=== PATIENT | male | born 1935 | race African-American/Black ===

== ENCOUNTER 2017-10-16 16:41 | Observation (INO) ==
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
[2017-10-16 18:20] LABS: Hematocrit 29.1 % (42.0-52.0); Hemoglobin 9.2 gm/dL (13.5-18.0); Mean Cell Volume 81.3 fl (78-100); Mean Corpuscular Hemoglobin 25.7 pg (27-31); Mean Corpuscular Hgb Conc 31.6 g/dl (32-36); Mean Platelet Volume 9.1 fl (8-11.3); Neutrophil # 6.9 K/mm3 (1.3-6.0); Neutrophil % 71.3 % (42-75.0); Platelet Count 227 K/mm3 (150-450); Red Blood Count 3.58 M/mm3 (4.7-6.0); Red Cell Distribution Width 15.4 % (11.5-14.0); White Blood Count 9.7 K/mm3 (4.0-10.5)
[2017-10-16 18:33] LABS: Albumin * 2.6 gm/dl (3.4-5.0); Anion Gap 9.6 mmol/L (6.8-13.8); BUN/Creatinine Ratio 17.2 (9.0-21.6); Bilirubin, Total 0.6 mg/dL (0.0-1.1); Ca. Corrected For Albumin 9.5 mg/dL (8.4-10.2); Calcium * 8.7 mg/dL (7.9-10.9); Potassium 4.6 mmol/L (3.4-4.6); Total Protein 7.3 gm/dL (6.2-8.2)
[2017-10-16] MEDS ORDERED: guaiFENesin 100 MG/5 ML BTL PO PRN (22:50)
[2017-10-16] MEDS ORDERED: MAGNESIUM HYDROXIDE 30 ML UDC PO PRN (22:50)
[2017-10-16] MEDS ORDERED: ONDANSETRON HCL 4 MG/5 ML BTL PO PRN (22:50)
[2017-10-16] MEDS ORDERED: ACETAMINOPHEN 325 MG TABLET PO PRN (22:50)
[2017-10-16] MEDS ORDERED: BISACODYL 10 MG SUPP.RECT RC PRN (22:50)
[2017-10-16] MEDS: MORPHINE SULFATE 10 MG/0.5 ML SYRINGE PO PRN (23:26)
--- NOTE | 2017-10-17 08:37 | HP ---
Chief Complaint - Chief Complaint Date of Service: 10/17/17 Time of Service: 08:00 Chief Complaint: Weakness, unable to care at home, hospice History of Present Illness: David is an 82 yo male on hospice due to prostate cancer and CVA. He has home hospice through [facility]. He was going out to the garage to get something to swish when he fell backwards and couldn't get up. His helped him to bed but since then she has not been able to get out of bed on his own. He normally is able to get around with a walker. Since he is unable to get to the bathroom he has been incontinent in bed. He has not had a bowel movement in 4 days. His was finding it difficult to care for him at home and called the hospice nurse who recommended he go to the ER and we begin looking into halfway placement with hospice. Due to stroke he takes nutrition through tube feeds. He chronically has right hip pain and left breast pain. He currently reports these are controlled on his morphine. He denies any new symptoms other than the weakness. Medical History (Last Reviewed 10/17/17 @ 00:15 by Misty Rubin RN) CVA (cerebral vascular accident) Liver cancer Metastatic malignant neoplasm to prostate Prostate CA Surgical History: Surgical History (Last Updated 10/17/17 @ 08:32 by Emmanuel Rodriguez DO) No pertinent past surgical history Family History: Family History (Last Updated 10/17/17 @ 08:31 by Emmanuel Rodriguez DO) Other Not Contributory Social History: Patient Lives/Resources With Spouse Utilized Preferred Language Indonesian Do you have any restoration or No cultural preference? Smoking Status Former smoker Have you smoked in the past 12 No months Do you dip or chew tobacco No Abuse History No History of abuse Psych History No pertinent hx Alcohol Use none Drug Use none Review Of Systems (GEN) - Review of Systems Generalized/Overall Review: Present: Weakness. Absent: Chills, Fever EENTM: Present: Other - Chronic dry mouth Respiratory: Absent: Cough, Shortness of Breath Cardiac: Absent: Chest Pain, Edema Abdominal: Absent: Nausea, Vomiting Genitourinary: Present: Incontinent - from inability to get to the bathroom. Absent: Burning Musculoskeletal: Present: Joint Pain - Right Hip pain Neurological: Present: No Symptoms Reported Skin: Present: No Symptoms Reported Endocrine: Present: No Symptoms Reported Immunizations: IMMUNIZATION HX Immunizations Up to Date Yes History of Influenza Vaccine No Hx Pneumococcal Vaccination No Allergies/Adverse Reactions: Allergies Allergy/AdvReac Type Severity Reaction Status Date / Time No Known Allergies Allergy Verified 10/16/17 16:48 Home Medications: HOME MEDICATIONS Acetaminophen [Tylenol] 650 mg PO Q4H PRN 10/16/17 [Last Taken Unknown] Atorvastatin Calcium [Lipitor] 10 mg PEG DAILY 10/16/17 [Last Taken Unknown] Biotin [Cyto B7] 5 mg PO Q4H PRN 10/16/17 [Last Taken Unknown] Bisacodyl [Dulcolax Suppository] 10 mg RC DAILY PRN 10/16/17 [Last Taken Unknown ] Clopidogrel Bisulfate [Plavix] 75 mg PEG DAILY 10/16/17 [Last Taken Unknown] Docusate Sodium [Diocto] 100 mg PO BID 10/16/17 [Last Taken Unknown] Ergocalciferol (Vitamin D2) 6.5 ml PEG DAILY 10/16/17 [Last Taken Unknown] Escitalopram Oxalate 2.5 mg PEG DAILY 10/16/17 [Last Taken Unknown] Famotidine 2.5 ml PEG DAILY 10/16/17 [Last Taken Unknown] Magnesium Hydroxide [Milk Of Magnesia] 30 ml PO Q4H PRN 10/16/17 [Last Taken Unknown] Morphine Sulfate Conc. Oral Solution 0.25 ml PEG Q2H PRN 10/16/17 [Last Taken Unknown] Omeprazole Magnesium 20 ml PEG BID 10/16/17 [Last Taken Unknown] Ondansetron HCl 4 mg PO Q4H PRN 10/16/17 [Last Taken Unknown] Polyethylene Glycol 3350 [Miralax] 17 gm PEG DAILY 10/16/17 [Last Taken Unknown] Senna [place] Extract [Senna] 176 mg PO BID 10/16/17 [Last Taken Unknown] Tamsulosin HCl [Flomax] 0.4 mg PEG DAILY 10/16/17 [Last Taken Unknown] guaiFENesin [Guaifenesin] 200 mg PO Q4H PRN 10/16/17 [Last Taken Unknown] Exam - Exam Vital Signs: Vital Signs - Last Taken Temp 36.4 C 10/17/17 07:01 Pulse 91 10/17/17 07:01 Resp 16 10/17/17 07:01 BP 127/53 10/17/17 07:01 Pulse Ox 92 L 10/17/17 07:01 Constitutional: Present: Alert, Oriented x3, Cooperative ENT Exam: Present: hearing grossly normal Eye Exam: bilateral eye: normal inspection Respiratory: Present: lungs clear, normal breath sounds, no respiratory distress Cardiovascular/Chest: Present: regular rate, rhythm, no murmur Peripheral Pulses: radial (R): 2+, radial (L): 2+ Abdomen: Present: Normal bowel sounds, soft, nontender, no hepatospenomegaly, no masses Extremity: Present: no pedal edema Skin Exam: Present: normal color, warm/dry, no cyanosis Neurologic: Present: alert, normal mood/affect, oriented x 3 Appearance: Present: appropriate appearance, appropriate insight Diagnostic Studies: Abnormal Lab Results 10/16/17 10/16/17 Range/Units 18:15 18:15 RBC 3.58 L (4.7-6.0) M/mm3 Hgb 9.2 L (13.5-18.0) gm/dL Hct 29.1 L (42.0-52.0) % MCH 25.7 L (27-31) pg MCHC 31.6 L (32-36) g/dl RDW 15.4 H (11.5-14.0) % Immature Gran % (Auto) 1.10 H (0.001-0.429) % Immature Gran # (Auto) 0.11 H (0.000-0.0310) K/mm3 Lymphocytes % 17.8 L (20-51) % Monocytes % 9.7 H (0.0-9) % Neutrophils # 6.9 H (1.3-6.0) K/mm3 BUN 27 H (6-23) mg/dL Creatinine 1.57 H (0.4-1.4) mg/dL Est GFR (Non-Af Amer) 55 L D (60-130) mL/min AST 126 H (0-48) U/L Alkaline Phosphatase 322 H (50-170) U/L Albumin 2.6 L (3.4-5.0) gm/dl Laboratory Results WBC 9.7 K/mm3 (4.0-10.5) 10/16/17 18:15 RBC 3.58 M/mm3 (4.7-6.0) L 10/16/17 18:15 Hgb 9.2 gm/dL (13.5-18.0) L 10/16/17 18:15 Hct 29.1 % (42.0-52.0) L 10/16/17 18:15 MCV 81.3 fl (78-100) 10/16/17 18:15 MCH 25.7 pg (27-31) L 10/16/17 18:15 MCHC 31.6 g/dl (32-36) L 10/16/17 18:15 RDW 15.4 % (11.5-14.0) H 10/16/17 18:15 Plt Count 227 K/mm3 (150-450) 10/16/17 18:15 MPV 9.1 fl (8-11.3) 10/16/17 18:15 Immature Gran % (Auto) 1.10 % (0.001-0.429) H 10/16/17 18:15 Immature Gran # (Auto) 0.11 K/mm3 (0.000-0.0310) H 10/16/17 18:15 Neutrophils % 71.3 % (42-75.0) 10/16/17 18:15 Lymphocytes % 17.8 % (20-51) L 10/16/17 18:15 Monocytes % 9.7 % (0.0-9) H 10/16/17 18:15 Eosinophils % 0.0 % (0.0-3.0) 10/16/17 18:15 Basophils % 0.1 % (0.0-1.0) 10/16/17 18:15 Nucleated RBC % 0.0 k/mm3 (0-1) 10/16/17 18:15 Neutrophils # 6.9 K/mm3 (1.3-6.0) H 10/16/17 18:15 Lymphocytes # 1.72 k/mm3 (1.5-3.5) 10/16/17 18:15 Monocytes # 0.9 k/mm3 (0.0-1.0) 10/16/17 18:15 Eosinophils # 0.0 k/mm3 (0.0-0.7) 10/16/17 18:15 Absolute Basophils 0.0 k/mm3 (0.0-0.1) 10/16/17 18:15 Sodium 139 mmol/L (132-142) 10/16/17 18:15 Plasma Sodium 139 mmol/L (130-142) 10/16/17 18:15 Potassium 4.6 mmol/L (3.4-4.6) 10/16/17 18:15 Chloride 103 mmol/L (97-106) 10/16/17 18:15 Carbon Dioxide 31.0 mmol/L (24-32.6) 10/16/17 18:15 Anion Gap 9.6 mmol/L (6.8-13.8) 10/16/17 18:15 BUN 27 mg/dL (6-23) H 10/16/17 18:15 Creatinine 1.57 mg/dL (0.4-1.4) H 10/16/17 18:15 Est GFR (Non-Af Amer) 55 mL/min (60-130) L D 10/16/17 18:15 BUN/Creatinine Ratio 17.2 (9.0-21.6) 10/16/17 18:15 Random Glucose 110 mg/dL (70-110) 10/16/17 18:15 Calcium 8.7 mg/dL (7.9-10.9) 10/16/17 18:15 Calcium Adj for Albumin 9.5 mg/dL (8.4-10.2) 10/16/17 18:15 Total Bilirubin 0.6 mg/dL (0.0-1.1) 10/16/17 18:15 AST 126 U/L (0-48) H 10/16/17 18:15 ALT 35 U/L (19-67) 10/16/17 18:15 Alkaline Phosphatase 322 U/L (50-170) H 10/16/17 18:15 Total Protein 7.3 gm/dL (6.2-8.2) 10/16/17 18:15 Albumin 2.6 gm/dl (3.4-5.0) L 10/16/17 18:15 Assessment/Plan - Narrative Narrative: David is an 82 yo male with metastatic prostate cancer on hospice care at home. A recent fall has left him significantly weaker that he is unable to care for himself at home with the help of his . He will likely need halfway with hospice care. Imaging and lab work did not show any significant abnormalities to explain the weakness. Will continue his home medications. Will consult PT to eval and treat. Will look into discharge options. He is currently not safe to care for himself at home. Will admit to observation for weakness and failure of ADLs. - Assessment/Plan (1) General weakness Problem: Acute (2) Hospice care patient Problem: Acute (3) Metastatic malignant neoplasm to prostate Problem: Acute
[2017-10-17] MEDS ORDERED: TAMSULOSIN HCL 0.4 MG CAP.SR.24H PO SCH ×2 (09:00→19:00)
[2017-10-17] MEDS ORDERED: ROSUVASTATIN CALCIUM 10 MG TABLET PEG SCH ×2 (09:00→21:00)
[2017-10-17] MEDS: POLYETHYLENE GLYCOL 3350 119 GM BTL PEG SCH (09:07)
[2017-10-17] MEDS: CLOPIDOGREL BISULFATE 75 MG TABLET PEG SCH (09:07)
[2017-10-17] MEDS: DOCUSATE SODIUM 150 MG/15 ML BTL PO SCH ×2 (09:08→22:04)
[2017-10-17] MEDS: SENNOSIDES 8.6 MG TABLET PEG SCH ×2 (09:08→22:05)
[2017-10-17] MEDS: ESCITALOPRAM OXALATE 10 MG TAB PEG SCH (09:08)
[2017-10-17] MEDS: FAMOTIDINE 20 MG TABLET PEG SCH (09:08)
[2017-10-17] MEDS: OMEPRAZOLE 2 MG/ML BTL PEG SCH ×2 (09:22→22:08)
[2017-10-17] MEDS: MORPHINE SULFATE 10 MG/0.5 ML SYRINGE PO PRN ×2 (09:27→19:47)
[2017-10-18] MEDS: MORPHINE SULFATE 10 MG/0.5 ML SYRINGE PO PRN ×3 (01:26→16:12)
[2017-10-18] MEDS: ERGOCALCIFEROL PEG SCH ×2 (06:59→10:09)
[2017-10-18] MEDS: DOCUSATE SODIUM 150 MG/15 ML BTL PO SCH (10:08)
[2017-10-18] MEDS: SENNOSIDES 8.6 MG TABLET PEG SCH (10:08)
[2017-10-18] MEDS: ESCITALOPRAM OXALATE 10 MG TAB PEG SCH (10:09)
[2017-10-18] MEDS: POLYETHYLENE GLYCOL 3350 119 GM BTL PEG SCH (10:09)
[2017-10-18] MEDS: FAMOTIDINE 20 MG TABLET PEG SCH (10:11)
[2017-10-18] MEDS: CLOPIDOGREL BISULFATE 75 MG TABLET PEG SCH (10:11)
[2017-10-18] MEDS: OMEPRAZOLE 2 MG/ML BTL PEG SCH (10:11)
--- NOTE | 2017-10-18 15:44 | DS ---
(1) General weakness Problem: Acute (2) Hospice care patient Problem: Acute (3) Metastatic malignant neoplasm to prostate Problem: Acute Description of Stay: David is an 82 yo Black male with metastatic prostate cancer and CVA. He has home hospice but his strength and weight have been declining over the past several months. He had a fall at home and since then he has been even more weak and unable to get out of bed. He was admitted for failure of ADLs and weakness. Eyeglass Fitter and PT were consulted. He did fairly well with PT. Eyeglass Fitter recommends a change in tube feeds and discovered that he is not getting enough calories with his current diet. New tube feeding regimen was recommended. I hope that with the increase in calories that hopefully he will gain some strength. His would like to take him back home with home hospice and will continue to work on his strength with the increase in tube feedings. There were no acute fractures or abnormalities in lab work. Procedures Performed: none Results and Findings: Lab Pending Results 10/16/17 18:15: WBC 9.7, RBC 3.58 L, Hgb 9.2 L, Hct 29.1 L, MCV 81.3, MCH 25.7 L , MCHC 31.6 L, RDW 15.4 H, Plt Count 227, MPV 9.1, Immature Gran % (Auto) 1.10 H , Immature Gran # (Auto) 0.11 H, Neutrophils % 71.3, Lymphocytes % 17.8 L, Monocytes % 9.7 H, Eosinophils % 0.0, Basophils % 0.1, Nucleated RBC % 0.0, Neutrophils # 6.9 H, Lymphocytes # 1.72, Monocytes # 0.9, Eosinophils # 0.0, Absolute Basophils 0.0 10/16/17 18:15: Sodium 139, Plasma Sodium 139, Potassium 4.6, Chloride 103, Carbon Dioxide 31.0, Anion Gap 9.6, BUN 27 H, Creatinine 1.57 H, Est GFR (Non- Af Amer) 55 L D, BUN/Creatinine Ratio 17.2, Random Glucose 110, Calcium 8.7, Calcium Adj for Albumin 9.5, Total Bilirubin 0.6, AST 126 H, ALT 35, Alkaline Phosphatase 322 H, Total Protein 7.3, Albumin 2.6 L Discharge Location: Home Disposition: Hospice Home Condition: Stable Discharge Activity: Activity as tolerated Discharge Diet: Tube Feedings - Suggest changing pt's home feedings to four feedings of osmolite 1.5 via intermittant gravity drip. Pt will need 360 ml of osmolite 1.5 QID with a 120 ml water flush before and after each feeding. Pt will need a 120 ml water flush with meds at least twice daily. Will d/c the feedings overnight. Additional Patient Instructions (free text): Pt has [facility] ongoing, please call Lance with discharge information to [phone] and fax orders to [phone]. Suggest changing pt's home feedings to four feedings of osmolite 1.5 via intermittant gravity drip. Pt will need 360 ml of osmolite 1.5 QID with a 120 ml water flush before and after each feeding. Pt will need a 120 ml water flush with meds at least twice daily. Will d/c the feedings overnight. Complete Home Medications List: Complete Home Medication List: Acetaminophen [Tylenol] 650 mg PO Q4H PRN 10/16/17 Atorvastatin Calcium [Lipitor] 10 mg PEG DAILY 10/16/17 Biotin [Cyto B7] 5 mg PO Q4H PRN 10/16/17 Bisacodyl [Dulcolax Suppository] 10 mg RC DAILY PRN 10/16/17 Clopidogrel Bisulfate [Plavix] 75 mg PEG DAILY 10/16/17 Docusate Sodium [Diocto] 100 mg PO BID 10/16/17 Ergocalciferol (Vitamin D2) 6.5 ml PEG DAILY 10/16/17 Escitalopram Oxalate 2.5 mg PEG DAILY 10/16/17 Famotidine 2.5 ml PEG DAILY 10/16/17 Magnesium Hydroxide [Milk Of Magnesia] 30 ml PO Q4H PRN 10/16/17 Morphine Sulfate Conc. Oral Solution 0.25 ml PEG Q2H PRN 10/16/17 Omeprazole Magnesium 20 ml PEG BID 10/16/17 Ondansetron HCl 4 mg PO Q4H PRN 10/16/17 Polyethylene Glycol 3350 [Miralax] 17 gm PEG DAILY 10/16/17 Senna [place] Extract [Senna] 176 mg PO BID 10/16/17 Tamsulosin HCl [Flomax] 0.4 mg PEG DAILY 10/16/17 guaiFENesin [Guaifenesin] 200 mg PO Q4H PRN 10/16/17
[2017-10-18 17:31] VITALS: BP 122/55
== END 2017-10-18 16:40 | disposition hospice, home (50) ==
LOC: ER 16:41 → MS 16:41
PROVIDERS: ADMIT Family Medicine; ATTEND Family Medicine
DX: Z86.73 Personal history of transient ischemic attack (TIA), and cerebral infarction without residual deficits; C22.9 Malignant neoplasm of liver, not specified as primary or secondary; C61 Malignant neoplasm of prostate; R53.1 Weakness
CPT/HCPCS: 36415; 72170; 73552; 80053; 85025; 97161; 99283; G0378; G8978; G8979; G8980